=== PATIENT | female | born 1985 | race Caucasian/White ===

== ENCOUNTER 2024-04-25 09:16 | Outpatient (CLI) | payer BC, SELFPAY | END 2024-04-25 09:17 | disposition home or self-care (01) | PROVIDERS: PCP Family Medicine; Visit Provider Registered Nurse | DX: Z00.00 Encounter for general adult medical examination without abnormal findings (principal); D50.9 Iron deficiency anemia, unspecified; I10 Essential (primary) hypertension | CPT/HCPCS: 80061 ==

== ENCOUNTER 2024-06-11 13:30 | Outpatient (RCR) | payer BC, SELFPAY ==
--- NOTE | 2024-04-11 10:23 | PC.NURSE ---
Diagnosis: iron deficiency anemia
--- NOTE | 2024-04-11 10:33 | URNOTE ---
Prior auth not required akosua Kimball ([id number]) per [employer]. REf #[id number]
[2024-04-15 10:15] VITALS: BP 158/107; PULSE 86; RESP 16; TEMP 36.8; O2SAT 100
[2024-04-15] MEDS: SODIUM CHLORIDE 0.9 % (FLUSH) 10 ML SYRINGE IVF (10:39)
[2024-04-15] MEDS: 0.9 % SODIUM CHLORIDE 250 ml IV (10:40)
[2024-04-15 10:48] VITALS: BP 159/100
[2024-04-15] MEDS: IRON SUCROSE COMPLEX 200 MG in 0.9 % SODIUM CHLORIDE 100 ml IVPB (10:53)
[2024-04-15 11:28] VITALS: BP 150/95; PULSE 86; TEMP 36.9; O2SAT 99
[2024-04-15 12:01] VITALS: BP 161/113; PULSE 84; RESP 16; TEMP 37; O2SAT 99
[2024-04-15 12:02] VITALS: BP 158/110
[2024-04-15 12:35] VITALS: BP 150/104
--- NOTE | 2024-04-15 13:15 | PC.NURSE ---
Pt present at [facility] for iron infusion. BP elevated before and after iron infusion. Discussed with Thao Angulo APRN prior to and after infusion. Pt instructed to see PCP prior to next infusion on 04/30/2024. RN also contacted Dr. Aguayo (ordering provider, heme/onc) who agreed. also gave a hold parameter which was co-signed by Thao Angulo APRN. We are NOT to give Venofer if DBP > 90.
[2024-04-30 11:11] VITALS: BP 135/87; PULSE 90; TEMP 36.5; O2SAT 100
[2024-04-30] MEDS: 0.9 % SODIUM CHLORIDE 250 ml IV (11:32)
[2024-04-30] MEDS: IRON SUCROSE COMPLEX 200 MG in 0.9 % SODIUM CHLORIDE 100 ml 440 MG IVPB (11:33)
[2024-04-30] MEDS: SODIUM CHLORIDE 0.9 % (FLUSH) 10 ML SYRINGE IVF (11:33)
[2024-04-30 12:07] VITALS: BP 131/84; PULSE 77; RESP 16; TEMP 36.7; O2SAT 98
[2024-05-14 09:57] VITALS: BP 143/95; PULSE 82; RESP 16; TEMP 36.5; O2SAT 100
[2024-05-14] MEDS: 0.9 % SODIUM CHLORIDE 250 ml IV (11:10)
[2024-05-14] MEDS: IRON SUCROSE COMPLEX 200 MG in 0.9 % SODIUM CHLORIDE 100 ml 220 MG IVPB (11:10)
[2024-05-14 11:49] VITALS: BP 142/93; PULSE 77; RESP 16; TEMP 36.8; O2SAT 99
[2024-05-14 12:10] VITALS: BP 152/95; PULSE 71
--- NOTE | 2024-05-14 15:40 | ONC.NURNOTE ---
Pt here for Venofer. Initially BP 143/95. Pt sat for 15 min and BP 139/90. Venofer given. Pt states she hasn't taken her lisinopril for the past 2 days due to lip and eyelid swelling. Pt has a message out to her primary care regarding BP and side effects. After Venofer given, BP diastollic 92-94. Pt asymptomatic, denies headache, blurry vision.
[2024-06-06 11:00] VITALS: BP 150/100; PULSE 71; RESP 15; TEMP 36.1; O2SAT 98
--- NOTE | 2024-06-06 14:35 | ONC.NURNOTE ---
was not treated today due to elevated bp. she states white coat syndrom and also with anemia runs high bp. she was on Lisinopril but had a allergic reaction. swollen lips and eyes. not on any bp meds now. bp manually and by machine, ana arms 145-160/90-102. pt states also has a ear infection. rescheduled for next sunn.
[2024-06-11 13:40] VITALS: BP 115/104; PULSE 112
--- NOTE | 2024-06-11 14:43 | ONC.NURNOTE ---
Patient in clinic today for 4th Iron Infusion. Patient's diastolic number consistency over 100. Attempted BP several times in both arms and only one reading had a diastolic of 98. Patient sat calm in the room, given a armotherapy patch for anxiety and BP still remained high. Decision made to cancel patient's iron infusion today. Patient is going to call her primary about getting back on BP meds. She is also going to ask to have her iron labs checked to see if she would still need the remaining 2 doses. Patient will call clinic back with an update once she see's her primary.
== END 2024-10-12 23:59 | disposition home or self-care (01) ==
LOC: CCIC 13:30
PROVIDERS: PCP Family Medicine; Referring Provider Family Medicine; Visit Provider Clinical Nurse Specialist
DX: D50.9 Iron deficiency anemia, unspecified (principal)
CPT/HCPCS: 96365; J1756; J7050

== ENCOUNTER 2025-02-25 13:00 | Outpatient (RCR) | payer BC, SELFPAY ==
[2024-10-14 14:58] LABS: Hematocrit 33.4 % (33.0-51.0); Hemoglobin* 10.3 gm/dL (12.0-16.0); Immature Granulocytes Pct Auto 0.2 %; Mean Corpuscular HGB Conc 31 gm/dL (32-36); Mean Corpuscular Hemoglobin 21 pg (26-34); Mean Corpuscular Volume 67 fL (80-100); RDW Coefficient of Variation % 17.2 % (11.5-15.5); Red Blood Count 4.97 m/uL (4.00-5.20); White Blood Count* 12.40 K/uL (4.50-11.00)
[2024-10-14 15:03] LABS: Immature Granulocytes Abs Auto 0.00 K/uL (0.00-0.30); Lymphocytes Absolute Auto 3.20 K/uL (0.90-2.90); Slide Review Reflex No
[2024-10-14 15:32] LABS: Iron* 26 ug/dL (37-170)
[2024-10-14 15:42] LABS: Percent Iron Saturation 6 % (20-50); Total Iron Binding Capacity 403 ug/dL (265-497)
--- NOTE | 2024-10-24 13:04 | URNOTE ---
Request received for authorization for Iron Sucrose (Venofer) ([id number]). Prior authorization is not required as services are based on medical necessity, per [facility] Rep. Christoph Ngo Ref#[id number].
[2024-11-05 08:10] VITALS: BP 159/106; PULSE 120; RESP 19; TEMP 36.9; O2SAT 97
[2024-11-05 09:30] VITALS: BP 138/95; PULSE 102
[2024-11-05 10:20] VITALS: BP 140/91; PULSE 97; RESP 16; TEMP 36.9; O2SAT 97
[2024-11-05 10:50] VITALS: BP 140/93; PULSE 88; RESP 16; TEMP 36.9; O2SAT 98
--- NOTE | 2024-11-05 14:30 | ONC.NURNOTE ---
Pt here for iron sucrose, BP prior to starting iron was 138/95-Discussed with Dr. Astudillo if okay to proceed and per Wilda BP acceptable for iron infusion given pt's anxiety in the clinic setting. Dr. Astudillo also mentioned pt could space out iron infusions to every other week if she would like to help minimize wt gain. Pt at this time would like to have her infusions weekly.
[2024-11-14 13:27] VITALS: BP 145/92; PULSE 104; RESP 16; TEMP 36.8; O2SAT 97
[2024-11-14 14:25] VITALS: BP 145/85; PULSE 94; RESP 16; TEMP 37.2; O2SAT 97
[2024-11-14 14:55] VITALS: BP 141/94; PULSE 90; RESP 18; TEMP 37.2; O2SAT 96
--- NOTE | 2024-11-26 07:41 | ONC.NURNOTE ---
Pt Lm cancelling today's iron infusion d/t work emergency. Lm for pt to call back to reschedule.
[2024-12-24 11:13] VITALS: BP 148/101; PULSE 107; RESP 18; TEMP 36.8; O2SAT 98
[2024-12-24 13:05] VITALS: BP 154/98; PULSE 89; RESP 18; O2SAT 97
[2025-01-21 11:13] VITALS: BP 179/121; PULSE 100; RESP 18; TEMP 35.8; O2SAT 98
--- NOTE | 2025-01-21 12:06 | ONC.NURNOTE ---
Patient in clinic today for IV iron. BP elevated on arrival (179/121) Patient given aromatherapy patch and hooked up to the interval monitoring on BP. Patient reports she is feeling more anxious about her infusion today and she is having a very stressful day at work. BP came down to 147/104, patient needs to pick her daughter up in an hour and she is now anxious about timing. Patient decided she did not want to do her iron infusion today. She will call back to reschedule. Pharmacy notified of cancel.
[2025-02-04 13:07] LABS: Hematocrit 35.5 % (33.0-51.0); Hemoglobin* 11.3 gm/dL (12.0-16.0); Immature Granulocytes Pct Auto 0.3 %; Mean Corpuscular HGB Conc 32 gm/dL (32-36); Mean Corpuscular Hemoglobin 23 pg (26-34); Mean Corpuscular Volume 73 fL (80-100); RDW Coefficient of Variation % 18.1 % (11.5-15.5); Red Blood Count 4.85 m/uL (4.00-5.20); White Blood Count* 11.89 K/uL (4.50-11.00)
[2025-02-04 13:10] LABS: Immature Granulocytes Abs Auto 0.00 K/uL (0.00-0.30); Lymphocytes Absolute Auto 2.80 K/uL (0.90-2.90); Slide Review Reflex No
[2025-02-04 13:59] LABS: Iron* 34 ug/dL (37-170)
[2025-02-04 14:08] LABS: Percent Iron Saturation 8 % (20-50); Total Iron Binding Capacity 434 ug/dL (265-497)
[2025-02-18 13:05] VITALS: BP 145/103; PULSE 117; RESP 17; TEMP 37; O2SAT 98
[2025-02-18 13:40] VITALS: BP 146/89; PULSE 102
[2025-02-25 13:01] VITALS: BP 157/91; PULSE 106; TEMP 37.5; O2SAT 97
[2025-02-25 13:15] VITALS: BP 138/91
[2025-02-25 14:10] VITALS: BP 146/97; PULSE 84; RESP 16; TEMP 37.1; O2SAT 98
[2025-02-25 14:31] VITALS: BP 145/101; PULSE 74; RESP 16; TEMP 37.1; O2SAT 99
== END 2025-04-12 23:59 | disposition home or self-care (01) ==
LOC: CCIC 13:00
PROVIDERS: Clinical Nurse Specialist; PCP Registered Nurse; Referring Provider Registered Nurse; Visit Provider Internal Medicine Hematology & Oncology
DX: D50.9 Iron deficiency anemia, unspecified (principal)
CPT/HCPCS: 36415; 82728; 83540; 83550; 85025; 96365; 99204; 99213; 99214; G0463; J1756

== ENCOUNTER 2025-06-09 16:13 | Outpatient (CLI) | payer BC, OTHER, SELFPAY | END 2025-06-09 16:14 | disposition home or self-care (01) | PROVIDERS: PCP Nurse Practitioner Family; Visit Provider Nurse Practitioner Family | DX: I10 Essential (primary) hypertension (principal) | CPT/HCPCS: 80053; 82607; 83735 ==

== ENCOUNTER 2025-06-19 15:03 | Outpatient (CLI) | payer BC, SELFPAY ==
--- NOTE | 2025-06-19 15:00 | CRLHL7_ITS ---
For Patients: As a result of the Century Cures Act, medical imaging exams and procedure reports are released immediately into your electronic medical record. You may view this report before your referring provider. If you have questions, please contact your health care provider. INDICATION: Pain in both knees, unspecified chronicity COMPARISON: None. TECHNIQUE: 2D martinez-scale and color Doppler images were acquired of the pelvis using a transabdominal and transvaginal approach. Transvaginal imaging performed to better visualize the endometrial stripe and ovaries. FINDINGS: Uterine echotexture is heterogeneous. Left-sided intramural fibroid measures 5.6 x 5.1 x 5.9 cm. Right-sided fibroid measures 7.4 x 6.5 x 7.1 cm. Mid fundal fibroid measures 6.7 x 5.7 x 6.6 cm. Lower uterine segment fibroid measures 3.9 x 3.3 x 4.6 cm. Endometrium is difficult to evaluate due to the large fibroids. The visualized endometrium measures approximately 11 millimeters. The right ovary measures 3.8 x 2.1 x 3.3 cm and the left ovary measures 3.1 x 3.2 x 3.1 cm. Normal Doppler evaluation of the right ovary. Incomplete Doppler evaluation of the left ovary due to the multiple fibroids. There are no suspicious fluid collections within the cul-de-sac. IMPRESSION: Fibroid uterus with multiple fibroids measuring up to 7.4 cm. Dictated by Alberto Curry MD @ 06/19/2025 4:07:58 PM (Electronically Signed)
== END 2025-06-19 15:04 | disposition home or self-care (01) ==
LOC: US 15:03
PROVIDERS: PCP Nurse Practitioner Family; Visit Provider Nurse Practitioner Family
DX: N92.0 Excessive and frequent menstruation with regular cycle (principal); D25.9 Leiomyoma of uterus, unspecified
CPT/HCPCS: 76830; 76856; 93976